=== PATIENT | male | born 1975 | race Caucasian/White ===

== ENCOUNTER 2018-08-17 23:50 | Emergency (ER) | payer MEDICAID ==
[2018-08-18 02:49] LABS: EOSINOPHILE ABSOLUTE 0.1 Th/cmm (0.1-0.4); HEMATOCRIT 42.6 % (41.0-60); LYMPHOCYTE ABSOLUTE 1.5 Th/cmm (1.5-3.0); MEAN CELL VOLUME 82.8 fl (80-99); MEAN CORPUSCULAR HEMOGLOBIN 27.1 pg (26.0-30.0); MEAN CORPUSCULAR HGB CONC 32.7 pg (28.0-36.0); MEAN PLATELET VOLUME 7.6 fl; MONOCYTE ABSOLUTE 0.8 Th/cmm (0.3-1.0); NEUTROPHILE ABSOLUTE 3.1 Th/cmm (1.8-8.0); PLATELET COUNT 206 Th/cmm (150-400); RED BLOOD COUNT 5.15 Mil/cmm (4.30-5.70); RED CELL DISTRIBUTION WIDTH 13.6 % (11.5-20.0); WHITE BLOOD COUNT 5.5 Th/cmm (4.8-10.8)
[2018-08-18 03:05] LABS: ALB/GLOB RATIO 1.5 (1.0-1.8); ALBUMIN 3.9 gm/dL (4.2-5.5); ALKALINE PHOSPHATASE 94 U/L (34-104); ANION GAP 9.9 (7.0-16.0); BILIRUBIN,TOTAL 1.1 mg/dL (0.3-1.0); BUN - UREA NITROGEN 12 mg/dL (7-25); CALCIUM SERUM 8.9 mg/dL (8.6-10.3); CARBON DIOXIDE 25.2 mEq/L (21.0-31.0); CHLORIDE 106 mEq/L (98-107); CREATININE - SERUM 0.6 mg/dL (0.7-1.3); GFR AFRICAN-AMERICAN > 60.0 ml/min (>90); GFR NON AFRICAN-AMERICAN > 60.0 ml/min; GLUCOSE 105 mg/dL (70-105); POTASSIUM SERUM 3.1 mEq/L (3.5-5.1); SGOT 15 U/L (13-39); SGPT/ALT 13 U/L (7-52); SODIUM SERUM 138 mEq/L (136-145); TOTAL PROTEIN,SERUM 6.5 gm/dL (6.0-8.3)
[2018-08-18] MEDS ORDERED: Potassium Chloride 20 mEq ER Tab PO ONE ×2 (03:13→03:21)
--- NOTE | 2018-08-18 03:13 | ED Physician Chart ---
ED Chief Complaint/HPI - Patient Information Date Seen:: 08/18/18 Time Seen:: 03:09 Chief Complaint:: leg pain History of Present Illness:: etoh abuse homelessness Allergies:: Allergies Allergy/AdvReac Type Severity Reaction Status Date / Time No Known Allergies Allergy Verified 08/18/18 00:05 Vitals:: Vital Signs - 8 hr 08/18/18 00:05 Temp 98.6 F HR 74 RR 18 BP 173/79 O2 Sat % 99 ED Review of Systems - Review of Systems General/Constitutional: No fever Skin: No skin lesions Head: No headache Eyes: No loss of vision Neck: No neck pain Cardio Vascular: No chest pain Pulmonary: No SOB GI: No nausea, No vomiting G/U: No dysuria Musculoskeletal: Bone or joint pain Endocrine: No polyuria Hematopoietic: No bruising ED Past Medical History - Past Medical History Past Medical History: Other (chronic etoh abuse) Family Medical History - Family Member Mother History Unknown: Yes ED Physical Exam - Physical Examination General/Constitutional: Awake, Well-developed, well-nourished, Alert, No distress, GCS 15, Non-toxic appearing, Ambulatory Other Gen/Cons comments:: skin very dark stong musty not etoh smell unkempt Head: Atraumatic Eyes: Lids, conjuctiva normal, PERRL, EOMI Skin: Nl inspection, No rash, No skin lesions, No ecchymosis, Well hydrated, No lymphadenopathy ENMT: External ears, nose nl, Nasal exam nl, Lips, teeth, gums nl Neck: Nontender, Full ROM w/o pain, No JVD, No nuchal rigidity, No bruit, No mass, No stridor Respiratory: Nl effort/Exclusion, Clear to Auscultation, No Wheeze/Rhonchi/Rales Cardio Vascular: RRR, No murmur, gallop, rubs, NL S1 S2 GI: No tenderness/rebounding/guarding, No organomegaly, No hernia, Normal BS's, Nondistended, No mass/bruits, No McBurney tenderness : No CVA tenderness Extremities: No tenderness or effusion, Full ROM, normal strength in all extremities, No edema, Normal digits & nails Neuro/Psych: Alert/oriented, DTR's symmetric, Normal sensory exam, Normal motor strength, Judgement/insight normal, Mood normal, Normal gait, No focal deficits Misc: Normal back, No paraspinal tenderness ED Labs/Radiology/EKG Results - Lab Results Results: Laboratory Tests 08/18/18 08/18/18 02:45 02:45 WBC 5.5 RBC 5.15 Hgb 14.0 Hct 42.6 MCV 82.8 MCH 27.1 MCHC Differential 32.7 RDW 13.6 Plt Count 206 MPV 7.6 Add Manual Diff YES Sodium 138 Potassium 3.1 L Chloride 106 Carbon Dioxide 25.2 Anion Gap 9.9 BUN 12 Creatinine 0.6 L Est GFR ( Amer) > 60.0 Est GFR (Non-Af Amer) > 60.0 BUN/Creatinine Ratio 20.0 Glucose 105 Calcium 8.9 Total Bilirubin 1.1 H AST 15 ALT 13 Alkaline Phosphatase 94 Total Protein 6.5 Albumin 3.9 L Globulin 2.6 Albumin/Globulin Ratio 1.5 Ethyl Alcohol < 10 ED Assessment - Assessment General Assessment: chronic etoh homelessness leg pains no open wounds moving all 4 ED Septic Shock - . Is Septic Shock (SBP<90, OR Lactate>4 mmol\L) present?: No - <6hrs of presentation: Vital Signs: Vital Signs - 8 hr 08/18/18 00:05 Temp 98.6 F HR 74 RR 18 BP 173/79 O2 Sat % 99 ED Reassessment (Disposition) - Reassessment Reassessment:: hypokalemia leg pains - Diagnosis Diagnosis:: as above - Aftercare/Follow up Instructions Aftercare/Follow-Up Instructions:: Counseled pt regarding lab results/diagnosis & need follow up - Patient Disposition Discharge/Transfer:: Home Condition at Disposition:: Stable
[2018-08-18 03:31] LABS: BAND NEUTROPHILE 1 % (0-10); EOSINOPHIL 1 % (0-5); LYMPHOCYTE 31 % (20-50); MONOCYTE 6 % (2-10); NEUTROPHILS 61 % (40-80); PLATELET ESTIMATE ADEQUATE (NORMAL)
== END 2018-08-18 07:03 | disposition home or self-care (01) ==
LOC: ER 23:50
DX: E87.6 Hypokalemia (principal); M79.605 Pain in left leg; M79.604 Pain in right leg; F10.10 Alcohol abuse, uncomplicated; Y90.0 Blood alcohol level of less than 20 mg/100 ml; Z59.0 Homelessness
CPT/HCPCS: 36415-UA; 80053-TC; 80320-TC; 85007-TC; 85025-TC; Z7502